=== PATIENT | female | born 2000 | race Caucasian/White ===

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

== ENCOUNTER → 2020-06-22 | Outpatient (CLI) | payer BC ==
[~2020-06-22] MED LIST: ACET-78 PO; IBUP-844 PO; OXC5T PO
--- NOTE | 2020-06-22 16:54 | Diagnostic Imaging Report ---
CLINICAL INDICATION: Patient had COVID back in February and has recovered. Patient has low back pain. EXAM: MRI of the lumbar spine performed without IV contrast. Sagittal T2, sagittal T1, sagittal T2 fat-sat, and axial T2. COMPARISON: None. FINDINGS: There is no acute lumbar spine fracture or dislocation. There is no significant lumbar signal abnormality. There is chronic-appearing loss of height involving L5 vertebra predominantly involving the inferior endplate. The visualized portions of the distal thoracic spinal cord, conus medullaris, and cauda equina nerve roots are unremarkable. The conus medullaris tip is seen at the upper L1 vertebral body level. There is no significant paraspinal soft tissue abnormality. L1-L2: Unremarkable. L2-L3: There is no significant central spinal canal or neural foramen narrowing. There is very minimal disk bulging in the foraminal regions. L3-L4: There is a diffuse disk bulge with oyhqzmne-ur-yjqph sized disk extrusion/herniation of right paracentral region which causes severe central canal stenosis and effacement of the thecal sac. There is minimal neural foramen narrowing. There is narrowing of the right subarticular recess region. There is mild loss of disk space height and low T2 degenerative disk signal changes. L4-L5: There is a diffuse disk bulge with xzcey-wx-lwwsrobp size central disk protrusion/herniation with annular tear involving the herniated portion. There are low T2 degenerative disk signal changes. There is concern for encroachment upon the non-exited left L5 nerve root. There is mild central canal stenosis. There is moderate left neural foramen narrowing. There is mild right neural foramen narrowing. L5-S1: There is a mild diffuse disk bulge with superimposed broad posterior disk herniation component. There is no significant central canal stenosis. There is mild left neural foramen narrowing and no significant right neural foramen narrowing. IMPRESSION: 1: There is an L3-L4 diffuse disk bulge and jtytpfit-gr-ywwqv sized disk herniation with severe central canal stenosis. 2: There is an L4-L5 diffuse disk bulge with posterior disk herniation and concern for encroachment upon the non-exited left L5 nerve root. There is mild central canal stenosis, moderate left neural foramen narrowing and mild right neural foramen narrowing. 3: There is an L5-S1 mild diffuse disk bulge with posterior disk herniation. Dictated by: Dictated on workstation # [id number]
== END ==
LOC: RAD 14:17
PROVIDERS: ATTEND Family Medicine
DX: M51.26 Other intervertebral disc displacement, lumbar region (principal); M51.27 Other intervertebral disc displacement, lumbosacral region; M48.061 Spinal stenosis, lumbar region without neurogenic claudication
CPT/HCPCS: 72148

== ENCOUNTER → 2021-11-27 | Outpatient (CLI) | payer BC ==
[2021-11-27 16:41] LABS: BASOPHILS # (AUTO) 0.1 10^3/uL (0.0-0.1); BASOPHILS % (AUTO) 0 % (0-10); EOSINOPHILS # (AUTO) 0.1 10^3/uL (0.0-0.3); EOSINOPHILS % (AUTO) 1 % (0-10); HEMATOCRIT 46 % (35-52); HEMOGLOBIN 15.1 g/dL (11.5-16.0); LYMPHOCYTES # (AUTO) 4.9 10^3/uL (1.0-4.0); LYMPHOCYTES % (AUTO) 36 % (12-44); MEAN CORPUSCULAR HEMOGLOBIN 28 pg (25-34); MEAN CORPUSCULAR HGB CONC 33 g/dL (32-36); MEAN CORPUSCULAR VOLUME 85 fL (80-99); MEAN PLATELET VOLUME 8.5 fL (9.0-12.2); MONOCYTES # (AUTO) 0.8 10^3/uL (0.0-1.0); MONOCYTES % (AUTO) 6 % (0-12); NEUTROPHILS # (AUTO) 7.7 10^3/uL (1.8-7.8); NEUTROPHILS % (AUTO) 57 % (42-75); PLATELET COUNT 367 10^3/uL (130-400); WHITE BLOOD COUNT 13.6 10^3/uL (4.3-11.0)
[2021-11-27 17:39] LABS: CARBON DIOXIDE 24 MMOL/L (21-32); CHLORIDE 101 MMOL/L (98-107); POTASSIUM 4.1 MMOL/L (3.6-5.0); SODIUM 137 MMOL/L (135-145)
[2021-11-27 17:40] LABS: ALANINE AMINOTRANSFERASE 9 U/L (0-55); ALBUMIN 4.2 GM/DL (3.2-4.5); ALKALINE PHOSPHATASE 60 U/L (40-136); BILIRUBIN,TOTAL < 0.2 MG/DL (0.1-1.0); BUN/CREATININE RATIO 15; CALCIUM 9.6 MG/DL (8.5-10.1); CREATININE SERUM 0.62 MG/DL (0.60-1.30); GFR ESTIMATED 129; GLUCOSE 95 MG/DL (70-105); TOTAL PROTEIN 7.6 GM/DL (6.4-8.2)
[2021-11-27 17:57] LABS: LIPASE 21 U/L (8-78)
== END ==
LOC: LAB FS 16:15
PROVIDERS: ATTEND Registered Nurse Emergency
DX: R10.9 Unspecified abdominal pain (principal)
CPT/HCPCS: 36415; 80053; 83690; 85025